=== PATIENT | female | born 1970 | race Caucasian/White ===

== ENCOUNTER 2016-11-16 06:54 | Emergency (ER) | payer BC ==
--- NOTE | 2016-11-22 21:28 | ER ---
ADMIT: 11/16/2016 RM/LOC: ER [facility] MR#: [id number] [address] [id number] CHRISTOPH CORTEZ [address] [place] [address] [place] [address] Emergency Room Report SEX: F AGE: 46 : 1970 DATE: 11/16/2016 ADDENDUM: A 46-year-old female with history of migraines comes in with a migraine that has been going for the past 2 days. She states this is similar to her previous migraines. The only thing that makes it different is she has a little bit of pain behind her eye. She has no other neurologic complaints and her physical exam is unremarkable for any acute neurologic findings. She does have significant photophobia which is consistent with her previous migraines. The patient got Toradol, Reglan, Benadryl, and Valium in the ER and her headache was significantly improved. She does feel comfortable going home at this time. She is discharged home to return for any other concerning symptoms, otherwise follow up with Dr. Ghosh as needed. Iam Pena MD/ frederic JOB #: [id number] CC: Matias Lee MD, Attending Physician Cristobal Ghosh MD, Family Physician
== END 2016-11-16 08:40 | disposition home or self-care (01) ==
LOC: ER 06:54
DX: G43.909 Migraine, unspecified, not intractable, without status migrainosus (principal); F32.9 Major depressive disorder, single episode, unspecified; Z88.5 Allergy status to narcotic agent; Z98.890 Other specified postprocedural states; Z79.899 Other long term (current) drug therapy

== ENCOUNTER 2017-04-19 16:59 | Emergency (ER) | payer BC | END 2017-04-19 18:40 | disposition home or self-care (01) | DX: R07.89 Other chest pain (principal); F32.9 Major depressive disorder, single episode, unspecified; Z90.49 Acquired absence of other specified parts of digestive tract; Z90.89 Acquired absence of other organs; Z98.890 Other specified postprocedural states; Z88.8 Allergy status to other drugs, medicaments and biological substances; Z79.899 Other long term (current) drug therapy ==